=== PATIENT | female | born 1980 ===

== ENCOUNTER 2016-11-23 23:16 | Emergency (ER) | payer MEDICAID ==
[~2016-11-23] VITALS: Ht 154.9 cm; Wt 69.1 kg
[2016-11-23 23:19] VITALS: BP 159/110; PULSE 81; RESP 20; O2SAT 99
--- NOTE | 2016-11-24 01:05 | ED.REPORT ---
HPI-Trauma Minor / Fall Date of Service Nov 24, 2016 ED Provider: Robi Sanchez MD Patient is a 36 year old female who presents to the ED complaining of right rib and knee pain after a ground level fall at [facility] just prior to arrival. The patient was in the produce section and slipped on a wet floor mat. The patient landed on her hands and knees, with pain to all of her extremities. Her pain is most severe in her knees and her right ribs. The patient is able to ambulate but states that it hurts to do so. Patient denies head trauma or loss of consciousness. She did not sustain any other injuries. Nursing Notes Stated Complaint: FELL AT [facility], HAS RIB & KNEE PAIN Chief Complaint: Multiple Trauma/Fall Nursing Notes Reviewed: Yes Allergies: Coded Allergies: No Known Allergies (Unverified Allergy, 01/03/12) General Time Seen by MD: 01:04 Chief Complaint Fall, Extremity pain Hx Obtained From: Patient Arrived By: Walk-in Onset Occurred: Just prior to arrival Symptom Duration: Since onset Location: Chest Knee left Knee right Quality: Painful Severity: Current: Moderate Severity: Maximum: Moderate Recent Healthcare: No recent doctor visit, No recent hospitalization Similar Sx Previous: No Past Medical History Past Medical History None Past Surgical History Reports: , Cholecystectomy Reports: Tubal ligation Smoking History Never Smoker Social History Other Social History: Good social support, Local resident Ambulatory Status Independent Review of Systems Musculoskeletal: Reports: Extremity pain, Joint pain Neurologic: Denies: Change LOC, Headache Complete sys rev & neg: except as marked. Cardiovascular: Reports: Chest pain (rib pain) GI: Denies: Abdominal pain Physical Exam Initial Vital Signs Vital Signs (First) Date Time Temp Pulse Resp B/P Pulse Ox O2 Delivery O2 Flow Rate FiO2 11/23/16 23:19 36.3 81 20 159/110 99 Room Air Initial VS: Reviewed, Vital signs abnormal Skin: Warm, Dry, No cyanosis Neurologic: Alert, Oriented, Nonfocal Psychiatric: Mood/affect normal, Behavior normal, Normal thought content General/Constitutional: Awake, Alert, No acute distress Neck: Supple, Non-tender, No midline vertebral tend Head / Eyes: Atraumatic, Normocephalic, PERRL ENT: Atraumatic, Airway patent Respiratory / Chest: Breath sounds NL, Breath sounds = bilat, No respiratory distress, No rales, No rhonchi, No wheezing Tender under the right breast, point tenderness of the rib structures. Cardiovascular: Heart rate NL, Regular rhythm, Cap refill not delayed, Peripheral circulation NL Abdomen: Soft, Non-tender Upper Extremity / MS: No deformity, Neurologic intact, Vascular intact Wrist / Hand: Full range of motion, No deformity, Neurologic intact, Vascular intact Lower Extremity / Pelvis / MS: No deformity, Neurologic intact, Vascular intact Right Knee: Positive: Tenderness present... (Mild), Negative: Ecchymosis present, Joint effusion present Left Knee: Positive: Tenderness present... (Mild), Negative: Ecchymosis present, Joint effusion present Interpretation & Diagnostics X-Ray Chest Interpretation Chest Xray Interpretation: XR Ribs Impression: No effusion. No pulmonary contusion. No acute cardiopulmonary process. Interpretation / Wet Read by: Wet read ED physician X-Ray Interpretation X-Ray Ordered: Knee right Interpretation / Wet Read by: Wet read ED physician Interpretation: Normal exam, No fracture/dislocation Re-Eval/Medical Decision Med Decision/Clinical Course 36-year-old female with a ground-level fall. X-rays of the right ribs and right knee were negative. She has no physical exam evidence of other significant injury. Tylenol and/or ibuprofen as needed for pain and follow-up with her regular doctor. Source of Hx: Old records Re-Evaluation/Progress : Time of Eval: 02:49 Patient Status: Condition improved Re-Evaluation/Progress Note: The x-rays were negative. Patient understands and agrees with the plan to be discharged home. Discharge instructions and follow-up discussed. All questions were addressed. Return to the ED warnings given. Counseled Regarding: Diagnosis, Need for follow-up, When/why to return to ED Discharge & Departure Impression: Primary Impression: Fall from ground level Additional Impressions: Contusion of right knee Encounter type: initial encounter Qualified Code: S80.01XA - Contusion of right knee, initial encounter Contusion of rib on right side Encounter type: initial encounter Qualified Code: S20.211A - Contusion of right front wall of thorax, initial encounter Disposition: Home Discharge Condition All VS Reviewed: Yes Condition: Stable Patient Instructions: Contusion (ED) Additional Instructions: You are fortunate that there is no significant bony injury from the fall. There is tenderness on the ribs is actually where there is just rib cartilage, so nothing abnormal is seen on the x-ray because it is not bone. You could have the cartilage or fractured the cartilage in the fall. This will heal without intervention. Tylenol and/or ibuprofen as needed for pain. Follow -up with your regular doctor for further problems. Referrals: Nic Treviño MD (PCP) Scribe Attestation Portions of this note were transcribed by Maryan Rogers. I, Dr. Sanchez personally performed the history, physical exam and medical decision-making; I reviewed and confirmed the accuracy of the information in the transcribed note. Signed by: Echo Thomas, 11/24/2016 0250 copies to: Nic Treviño MD, Howard L MD Nov 24, 2016 01:05 Maryan Rogers Nov 24, 2016 01:12
[2016-11-24 03:09] VITALS: BP 143/97; PULSE 80; RESP 16; O2SAT 99
--- NOTE | 2016-11-24 08:24 | DRSVH ---
PROCEDURE: X-RAY RIGHT KNEE, THREE VIEWS ([id number]) INDICATIONS: fall TECHNIQUE: 3 views of the knee were acquired. COMPARISON: None. FINDINGS: Bones: No fractures or dislocations. No suspicious bony lesions. Lateral patellar tilt. Mild narro wing of the lateral joint space Soft tissues: No joint effusion. No suspicious soft tissue calcifications. IMPRESSION: No fracture. Dictated by: Aiden Bhatia M.D. on 11/24/2016 at 8:21 Approved by: Aiden Bhatia M.D. on 11/24/2016 at 8:22
--- NOTE | 2016-11-24 08:29 | DRSVH ---
PROCEDURE: X-RAY RIGHT RIBS INCLUDEING PA CHEST, MINUMUM THREE VIEWS ([id number]) INDICATIONS: fall TECHNIQUE: 2 views of the right ribs were acquired, along with a single view chest. COMPARISON: None. FINDINGS: Suboptimal evaluation as the ribs are superimposed on each other in multiple views Surgical changes and devices: None. Bones and chest wall: No fractures or dislocations. No suspicious bony lesions. Overlying soft tis sues appear unremarkable. Lungs and pleura: No pleural effusions or pneumothorax. Lungs appear clear. Mediastinum: Mediastinal contours appear normal. Heart size is normal. IMPRESSION: No definite or displaced fracture although suboptimal evaluation due to superimposition o f the ribs, as above No acute cardiopulmonary abnormality Dictated by: Aiden Bhatia M.D. on 11/24/2016 at 8:22 Approved by: Aiden Bhatia M.D. on 11/24/2016 at 8:27
== END 2016-11-24 03:10 | disposition home or self-care (01) ==
LOC: SED 23:16
DX: S80.01XA Contusion of right knee, initial encounter (principal); S20.211A Contusion of right front wall of thorax, initial encounter; W01.0XXA Fall on same level from slipping, tripping and stumbling without subsequent striking against object, initial encounter; Y93.89 Activity, other specified; Y92.512 Supermarket, store or market as the place of occurrence of the external cause; Y99.8 Other external cause status
CPT/HCPCS: 71101; 73562; 81025; 96372; 99284; J1885